=== PATIENT | female | born 1960 | race Caucasian/White ===

== ENCOUNTER → 2016-07-25 | Outpatient (CLI) | payer BC, OTHER ==
[~2016-07-25] VITALS: Ht 165.1 cm; Wt 95.3 kg
[~2016-07-25] MED LIST: ACCUNEB SO1.25 MG/1 INH; ALBUTEROL2.5 MG/0.5 INH; ASPIR 8181 MG PO; BIOTIN10000 MC1 PO; CARVEDILOL6.25 MG PO; FERREX 150 PLU1 EAC1 PO; FONDAPARIN10 MG/0.8 SUBQ; K-DUR 20 MEQ T20 MEQ PO; LASIX 20 MG TAB20 MG PO; LEVOTHYROXIN0.088 MG PO; ONE-A-DAY WOMENS PO; OXYCODONE HCL 55 MG PO; PACERONE 200 M200 M1 PO; PEPCID20 MG PO; VITAMIN B122500 MCG PO; VITAMIN D3400 UNIT PO; VITAMIN E400 UNIT PO
--- NOTE | ~2016-07-25 | EKG ---
[address] [address] ELECTROCARDIOGRAM REPORT Name: HI TAPIA [id number] Admission: 07/25/16 Attend Phys: Floyd Foster MD Discharge: Date of : 56 Report #: [id number] THIS REPORT FOR: //name// [facility] Test Date: 2016-07-25 Test Time: 11:50:35 Pat Name: HI TAPIA Department: Room: Gender: F Tank Bottom Assembler: Liliane SHOOK : 1960 Requested By: Floyd Foster Order Number: [id number] MD: Jairo Murphy Measurements Intervals [place] Rate: 56 P: -26 [place]: 164 QRS: 24 QRSD: 89 T: 53 QT: 470 QTc: 454 Interpretive Statements Sinus rhythm Consider left ventricular hypertrophy No previous ECG available for comparison Electronically Signed On 07-25-2016 15:31:52 FRUIT THINNER by Jairo Murphy [email or web address] <ELECTRONICALLY SIGNED> By: Jairo Murphy MD 07/25/16 1531 1150 1150 MD MARGA Keita
--- NOTE | ~2016-07-25 | H ---
[facility] [place] [address] HISTORY AND PHYSICAL Name: HI TAPIA Room #: REG KAYLA Santillan#: [id number] Admission: 07/25/16 Attend Phys: Floyd Foster MD Discharge: Date of : 56 Report #: [id number] THIS REPORT FOR: //name// CC: Yaneli Foster DATE OF SERVICE: 07/25/2016 INDICATION: Aortic stenosis. HISTORY OF PRESENT ILLNESS: Today, the patient presents for elective cardiac catheterization prior to having aortic valve replacement. The patient has a history of aortic stenosis, cirrhosis, and gastric bypass. Since her gastric bypass in 2012, she has lost over 100 sounds. The patient reports having a history of nonalcoholic cirrhosis. She had an echocardiogram revealing severe aortic stenosis with normal LV systolic function. She has been evaluated by Dr. Stephenson, scheduled to have an aortic valve replacement. Clinically, she offers no complaints of angina. At times, she will feel dyspnea with exertion. There is no history of lightheadedness, PND, or orthopnea. PAST MEDICAL HISTORY: Aortic stenosis, cirrhosis, gastric bypass, severe aortic stenosis, and normal ejection fraction. MEDICATIONS: Levothyroxine, vitamin, and fish oil. ALLERGIES: ASPIRIN. SOCIAL HISTORY: Negative for tobacco use. REVIEW OF SYSTEMS: A full 10-point review of systems performed. Only the pertinent positives and negatives are described in the HPI. PHYSICAL EXAMINATION: VITAL SIGNS: Blood pressure is 140/70, heart rate is 70 beats per minute. GENERAL APPEARANCE: This is a well-developed, well-nourished female, in no acute respiratory distress. HEAD AND EYES: Normocephalic. Sclerae are anicteric. ENT: Oral mucosa moist. NECK: Supple. LUNGS: Clear to auscultation. CARDIAC: Regular rate and rhythm, S1, S2 positive. 2/6 systolic murmur. ABDOMEN: Soft. EXTREMITIES: No major joint deformities. No edema. ASSESSMENT: 1. Severe aortic stenosis, scheduled cardiac catheterization prior to surgery. [facility] [address] [place] [address] HISTORY AND PHYSICAL Name: HI TAPIA Room #: [facility]#: [id number] Admission: 07/25/16 Attend Phys: Floyd Foster MD Discharge: Date of : 56 Report #: [id number] 2. Hypothyroidism. 3. History of gastric bypass. 4. Cryptogenic cirrhosis. <ELECTRONICALLY SIGNED> By: Floyd Foster MD 07/29/16 0819 1522 1540 Floyd Foster MD /nt
--- NOTE | ~2016-07-25 | CATHLAB ---
[facility] [place] [address] INVASIVE PROCEDURE REPORT Name: HI TAPIA Room #: REG [facility]#: [id number] Admission: 07/25/16 Attend Phys: Floyd Foster MD Discharge: Date of : 56 Date of Service: 07/25/16 1644 Report #: [id number] THIS REPORT FOR: //name// CC: Yaneli Foster DATE OF SERVICE: 07/25/2016 CARDIAC CATHETERIZATION REPORT INDICATION: /evaluation for Valvular heart surgery. Full risks, benefits and alternatives of cardiac catheterization were explained to the patient. All questions were answered. Informed consent was obtained. A Barbeau test was performed on the right radial artery. The right wrist area was prepped and draped in a sterile manner. Lidocaine was given subcutaneously. A 5-Italian sheath was inserted into the right radial artery via modified Seldinger technique. Nitroglycerin and verapamil was injected through the sheath. A units of heparin was given through peripheral IV. CORONARY ANATOMY: The left main artery is a large caliber vessel, with no flow-limiting lesions. The LAD is a moderate sized caliber vessel, travelling down the anterior wall and wrapping around the apex. There were no flow-limiting lesions in the LAD. In the mid segment, there is some mild diffuse disease, less than 20%. The first diagonal artery is a moderate size caliber vessel, with no flow-limiting lesions. The left circumflex artery is a moderate to large size caliber vessel, codominant. There are multiple obtuse marginal arteries. There were no flow-limiting lesions in the left circumflex artery. The RCA is a moderate size caliber vessel, supplying a PDA. There were no flow-limiting lesions in the RCA. A left ventriculogram was performed revealing normal LV systolic function, ejection fraction of 65%. The LVEDP is approximately 20 mmHg. The aortic valve leaflets are heavily calcified. The peak gradient is approximately 70 mmHg across the valve. IMPRESSION: 1. Mild disease in the mid LAD. 2. Normal LV systolic function. [facility] [address] [place] [address] INVASIVE PROCEDURE REPORT Name: HI TAPIA Room #: REG [facility]#: [id number] Admission: 07/25/16 Attend Phys: Floyd Foster MD Discharge: Date of : 56 Date of Service: 07/25/16 1644 Report #: [id number] 3. Severe aortic stenosis. 4. Recommend surgical evaluation. <ELECTRONICALLY SIGNED> By: Floyd Foster MD 07/26/16 0825 1644 220 Floyd Foster MD /nt
[2016-07-25 12:05] VITALS: BP 158/76
[2016-07-25 12:07] LABS: HEMOGLOBIN 12.2 gm/dL (12.0-15.0); MCH 30.9 pg (26.0-34.0); MCHC 33.8 % (28.0-37.0); MCV 91.5 fL (80.0-100.0); RBC 3.93 mil/uL (4.20-5.00); RDW 15.2 % (10.5-14.5); WBC 4.4 thou/uL (4.0-11.0)
[2016-07-25 12:19] LABS: CALCIUM 8.8 mg/dL (8.5-10.1); CREATININE 0.7 mg/dL (0.6-1.3); POTASSIUM 3.9 mmol/L (3.5-5.1)
== END | disposition home or self-care (01) ==
LOC: CATH 09:38
PROVIDERS: Internal Medicine Cardiovascular Disease
DX: I25.10 Atherosclerotic heart disease of native coronary artery without angina pectoris (principal); I35.0 Nonrheumatic aortic (valve) stenosis

== ENCOUNTER 2016-08-25 08:39 | Inpatient (IN) | payer BC, OTHER ==
[2016-08-19 09:54] LABS: HEMATOCRIT 35.5 % (37.0-47.0); HEMOGLOBIN 12.2 gm/dL (12.0-15.0); MCH 31.4 pg (26.0-34.0); MCHC 34.3 g/dL (28.0-37.0); MCV 91.4 fL (80.0-100.0); RBC 3.89 mil/uL (4.20-5.00); RDW 15.3 % (10.5-14.5); URINE BILIRUBIN NEGATIVE (Negative); URINE BLOOD NEGATIVE (Negative); URINE COLOR YELLOW; URINE GLUCOSE-RANDOM* NEGATIVE (Negative); URINE KETONES NEGATIVE (Negative); URINE LEUKOCYTES-REFLEX TRACE (Negative); URINE PROTEIN (DIPSTICK) NEGATIVE (Negative); WBC 3.9 thou/uL (4.0-11.0)
[2016-08-19 10:03] LABS: CALCIUM 9.1 mg/dL (8.5-10.1); CREATININE 0.7 mg/dL (0.6-1.3); POTASSIUM 3.9 mmol/L (3.5-5.1)
[2016-08-19 10:05] LABS: APTT 29.6 Seconds (24.5-32.8); INR 1.2; PROTIME 12.4 Seconds (9.3-11.4)
[2016-08-19 11:16] LABS: ALBUMIN 3.6 g/dL (3.4-5.0); DIRECT BILIRUBIN 0.3 mg/dL (<0.1-0.3); TOTAL BILIRUBIN 1.2 mg/dL (<0.1-1.0); TOTAL PROTEIN 6.6 g/dL (6.4-8.2)
[~2016-08-25] VITALS: Ht 165.1 cm; Wt 101.2 kg
--- NOTE | ~2016-08-25 | EKG ---
[address] [place] [address] ELECTROCARDIOGRAM REPORT Name: HI TAPIA Room #: 237- ADM IN M.R.#: [id number] Admission: 08/30/16 Attend Phys: Amos Stephenson MD Discharge: Date of : 56 Report #: [id number] THIS REPORT FOR: //name// [facility] Test Date: 2016-08-31 Test Time: 06:21:43 Pat Name: HI TAPIA Department: Room: 237 Gender: F Ointment Mill Tender: michelle : 1960 Requested By: Blair Lucas Order Number: [id number] MD: Godwin Pires Measurements Intervals [place] Rate: 79 P: 74 [place]: 161 QRS: 9 QRSD: 92 T: 45 QT: 490 QTc: 562 Interpretive Statements Sinus rhythm LVH with secondary repolarization abnormality Prolonged QT interval Compared to ECG 08/19/2016 09:26:05 no significant change was found Electronically Signed On 08-31-2016 8:30:46 MANAGEMENT MANAGER by Godwin Pires [email or web address] <ELECTRONICALLY SIGNED> By: Godwin Pires MD, [facility] 03/02/09 830 0 0 Godwin Pires MD, [facility] /EPI
--- NOTE | ~2016-08-25 | EKG ---
[place] [address] [facility] [employer] [place] [place] [address] ELECTROCARDIOGRAM REPORT Name: HI TAPIA Room #: 237-P ADM IN M.R.#: [id number] Admission: 08/30/16 Attend Phys: Amos Stephenson MD Discharge: Date of : 56 Report #: [id number] THIS REPORT FOR: //name// [facility] Test Date: 2016-08-30 Test Time: 13:50:10 Pat Name: HI TAPIA Department: Room: [facility] Gender: F Knife Edger: michelle : 1960 Requested By: Blair Lucas Order Number: [id number] MD: Godwin Pires Measurements Intervals [place] Rate: 76 P: 47 [place]: 187 QRS: 31 QRSD: 111 T: 30 QT: 418 QTc: 471 Interpretive Statements Sinus rhythm RSR' in V1 or V2, right VCD or RVH Nonspecific ST and T wave abnormality Compared to ECG 08/19/2016 09:26:05 No significant change was found Electronically Signed On 08-31-2016 8:15:18 AUTOMOTIVE LUBE TECHNICIAN by Godwin Pires [email or web address] <ELECTRONICALLY SIGNED> By: Godwin Pires MD, FACC 08/31/16 0815 1350 1350 Godwin Pires MD, [facility] /EPI
--- NOTE | ~2016-08-25 | O ---
[facility] [place] [address] OPERATIVE REPORT Name: HI TAPIA Room #: 210-P [facility] IN M.R.#: [id number] Admission: 08/30/16 Attend Phys: Amos Stephenson MD Discharge: 09/07/16 Date of : 56 Report #: [id number] THIS REPORT FOR: //name// CC: Yaneli Stephenson DATE OF SERVICE: 08/30/2016 PREOPERATIVE DIAGNOSIS: Aortic valve stenosis. POSTOPERATIVE DIAGNOSIS: Aortic valve stenosis. OPERATION: Aortic valve replacement with 21 mm tissue device. SURGEON: Amos Stephenson M.D. SUBMARINE DIVER: Lance. ANESTHESIA: General. INDICATIONS: The patient is a 55-year-old with aortic valve stenosis. The patient presents with progressive fatigue and shortness of breath. Cardiac catheterization by Dr. Foster showed no important coronary artery disease. FINDINGS AND TECHNIQUE: After general anesthesia was established, exposure was obtained through median sternotomy. Pericardial well was made. Cannulation sutures were placed. Heparin was given. Aorta was cannulated. Right atrium was cannulated. Cardioplegia needle was positioned in the aortic root. Retrograde cardioplegic catheter was placed in the coronary sinus. Cardiopulmonary bypass was established. The aorta was cross clamped. Antegrade and then retrograde cardioplegia were given. Ice was poured in the pericardial well. The heart was stopped. During electromechanical arrest, the aortic valve was replaced. An aortotomy was made approximately 15 mm above the right coronary ostium. Cardioplegia was given every 15 minutes through the retrograde root and with selective catheter in the right coronary ostium. The valve cusps were excised. The cavity of the ventricle was irrigated to remove any loose debris. 2-0 Ethibond sutures were placed sequentially through the nightmute annulus and then through the device, 21 mm selected for the patient and prosthesis matching, although prosthesis lowered into place and sutures were secured with a Cor-Knot device. The valve seemed to seat nicely. The aortotomy was closed with Carrel technique. Warm cardioplegia was given followed by warm continuous blood to the coronary [facility] [address] [place] [address] OPERATIVE REPORT Name: REGINAHI Room #: 210-P [facility] IN M.R.#: [id number] Admission: 08/30/16 Attend Phys: Amos Stephenson MD Discharge: 09/07/16 Date of : 56 Report #: [id number] sinus. The crossclamp was removed. De-airing maneuvers were performed. The aortotomy was inspected and found to be secured. As the patient warmed, nice cardiac activity resumed, chest tubes and pacing wires were placed. When the patient was warmed, she was weaned from cardiopulmonary bypass. Venous cannula was removed. Protamine was given. The aortic cannula was removed. Transesophageal echo showed that the aortic valve was performing nicely, this was also useful for our de-airing maneuvers. When hemostasis was satisfactory, chest was closed in the usual fashion. The patient was taken to the recovery area in good condition having tolerated the procedure well. <ELECTRONICALLY SIGNED> By: Amos Stephenson MD 09/07/162009 1731 1808 Amos Stepehnson MD /nt
--- NOTE | ~2016-08-25 | H ---
[facility] [address] [place] [address] HISTORY AND PHYSICAL Name: HI TAPIA Room #: 210-P [facility] IN M.R.#: [id number] Admission: 08/30/16 Attend Phys: Amos Stephenson MD Discharge: 09/07/16 Date of : 56 Report #: [id number] THIS REPORT FOR: //name// For History and Physical, please see office documentation/handwritten note in the patient's medical record. <ELECTRONICALLY SIGNED> By: Amos Stephenson MD 09/07/162009 1246 Amos Stephenson MD /
--- NOTE | ~2016-08-25 | EKG ---
[address] [employer] [place] [address] ELECTROCARDIOGRAM REPORT Name: HI TAPIA Room #: PRE IN [facility]#: [id number] Admission: Attend Phys: Amos Stephenson MD Discharge: Date of : 56 Report #: [id number] THIS REPORT FOR: //name// [facility] Test Date: 2016-08-19 Test Time: 09:26:05 Pat Name: HI TAPIA Department: Room: Gender: F Associate Chief Nurse: NANETTE VARGAS : 1960 Requested By: Amos Stephenson Order Number: [id number] MD: Jairo Murphy Measurements Intervals [place] Rate: 56 P: 71 [place]: 127 QRS: 79 QRSD: 90 T: -41 QT: 451 QTc: 436 Interpretive Statements Sinus rhythm Consider left ventricular hypertrophy Nonspecific T abnormalities, inferior leads Compared to ECG 07/25/2016 11:50:35 T-wave abnormality now present Electronically Signed On 08-19-2016 13:08:10 BURIAL VAULT MAKER by Jairo Murphy [email or web address] <ELECTRONICALLY SIGNED> By: Jairo Murphy MD 08/19/16 1308 5 5 Jairo Murphy MD /LAURA
--- NOTE | ~2016-08-25 | EKG ---
[address] [address] ELECTROCARDIOGRAM REPORT Name: HI TAPIA Room #: 210- ADM IN M.R.#: [id number] Admission: 08/30/16 Attend Phys: Amos Stephenson MD Discharge: Date of : 56 Report #: [id number] THIS REPORT FOR: //name// [facility] Test Date: 2016-09-03 Test Time: 08:08:20 Pat Name: HI TAPIA Department: Room: 210 P Gender: F Human Resource Internship: SILVIA : 1960 Requested By: Amos Stephenson Order Number: [id number] MD: Godwin Pires Measurements Intervals [place] Rate: 59 P: 40 CT: 167 QRS: 25 QRSD: 97 T: 35 QT: 576 QTc: 571 Interpretive Statements Sinus rhythm Prolonged QT interval Compared to ECG 08/31/2016 06:21:43 No significant change was found Electronically Signed On 09-03-2016 12:04:26 OPERATOR/ASSISTANT FOREMAN by Godwin Pires [email or web address] <ELECTRONICALLY SIGNED> By: Godwin Pires MD, [facility] 09/03/16 1204 7 7 Godwin Pires MD, [facility] /EPI
--- NOTE | ~2016-08-25 | S ---
[facility] [place] [address] SURGICAL PATH RPT PROCEDURE Name: HI FERRER Room #: 237-P ADM IN M.R.#: [id number] Admission: 08/30/16 Date of : 56 Discharge: Report #: [id number] Path Case #: [id number] PATHOLOGY REPORT COLLECTION DATE: 08/30/2016 RECEIVED DATE: 08/30/2016 SUBMITTING PHYS: Dr. Amos Stephenson OTHER PHYS: Dr. Yaneli Carpio SPECIMEN(S) RECEIVED: A.Aortic valve * * * * * * * * * * * * FINAL DIAGNOSIS: "Aortic valve", valve replacement: - Heart valve with calcific atherosclerosis. (CLW:abril; d/t: 08/31/2016) PATHOLOGIST: Gracie Bowen M.D. REPORT ELECTRONICALLY SIGNED BY: Gracie Bowen M.D. DATE/TIME: 08/31/2016 21:26 * * * * * * * * * * * * GROSS PATHOLOGY: The specimen is received in formalin, labeled "Hi Ferrer and aortic valve." Received are 3 white-menendez, blood-tinged, and rubbery soft tissue measuring 5.8 x 1.4 x 0.5 cm in aggregate. The soft tissue displays focal areas of calcifications ranging from 0.5-1.7 cm in greatest dimension. Raschel Knitting Machine Operator sections are submitted in cassette A1, following decalcification. (TTL; 08/30/2016) CLINICAL HISTORY: Aortic stenosis INITIAL CPT CODE(S): 40508, 35292 Professional services performed by [facility] at [facility] [address] [place] [address] Technical services performed by [facility] at [address] [place] [address]. [facility] [address] [place] [address] SURGICAL PATH RPT PROCEDURE Name: HI FERRER Room #: 237-P ADM IN M.R.#: [id number] Admission: 08/30/16 Date of : 56 Discharge: Report #: [id number] Path Case #: [id number] [facility] [address] [place] [address] PHONE: [phone] DIRECTOR: Moreno Chandler M.D. * * * END OF REPORT * * *
--- NOTE | ~2016-08-25 | HC ---
[facility] [place] [address] CONSULTATION Name: HI TAPIA Room #: 210-P ADM IN M.R.#: [id number] Admission: 08/30/16 Attend Phys: Amos Stephenson MD Discharge: Date of : 56 Report #: [id number] THIS REPORT FOR: //name// CC: Yaneli Stephenson MD REASON FOR CONSULTATION: Possible heparin-induced thrombocytopenia. HISTORY OF PRESENT ILLNESS: The patient is a 55-year-old female who has a history of nonalcoholic steatohepatitis and cirrhosis, who has no prior kowledge of low platelets. One of the other care givers thinks they had seen records suggesting that her platelets have been in the 80,000 range for the last 6 or 9 months. Previous to this, she was in [place] and we do not have those records available to us. When the patient was admitted to the hospital on August 30, it was 66,000. On August 19, they were 83,000. On July 25, they were 80,000. The patient received her first dose of heparin on September 22 and then again on August 30 at about 06:30. So, the platelet count on August 30, the first would have been after the heparin. The patient also notes that she received transfusions of platelets on August 30, one unit. The platelet count on the was 118,000; the next day, 54,000; on the , they were 51,000; on the , 54,000; on the , 54,000 and today, 63,000. The patient has not had any clinical sign of clots. The patient has no prior acknowledge of low platelets before this hospitalization, though I told her it would not be unusual if her platelets were in the 80,000 to 90,000 range with a history of cryptogenic cirrhosis, for her doctors would have expected that and might not have made any unusual comments. I described the patient that she had a heparin-induced platelet antibody by the optical density test that was measured and this came back elevated in the 0.922 range, which is indeterminant. During the same time, her chemistries have had a BUN of 8, creatinine of 0.8. AST on August 19 was 40, total bilirubin 1.2, alkaline phosphatase 110 and albumin 3.6. INR baseline was about 1.8; it is currently 1.3. APTT had been 29.1, fibrinogen had been 183.2. White count 4.6. Hemoglobin on admission was 8.8, transfused up to 11; it is currently 9.8. No clinical sign of bleeding. MCV has been 93. Differential of the white count has been mostly normal, without any acute forms. TSH normal range. U/A without any significant red cells. PAST MEDICAL HISTORY: Past history is notable for the aortic stenosis, for which she had the elective aortic valve replacement with a, I believe, bioprosthetic valve. She also has a history of the nonalcoholic steatohepatitis with cirrhosis, she thinks in about 2010 and gastric bypass in 2011. She said it was not a sleeve. They did somewhat of a bypass for the small intestine. She also had reported normal ejection fraction, has hypothyroidism and had diabetes prior to the weight loss. Note that before the bypass, she weighed 340 [facility] [address] [place] [address] CONSULTATION Name: HI TAPIA Room #: 210-P [facility] [place]#: [id number] Admission: 08/30/16 Attend Phys: Amos Stephenson MD Discharge: Date of : 56 Report #: [id number] and recently, weighs more like 210 pounds. ALLERGIES: Supposedly is towards ASPIRIN, but someone said she is on it. MEDICATIONS: Before this admission, she was on levothyroxine, vitamins and fish oil. Current medications include the potassium chloride 20 mEq has daily, furosemide 40 mg daily, fondaparinux 10 mg daily subq, oxycodone 2.5 mg q.6h. p.r.n., aspirin 81 mg daily, docusate 100 mg daily, iron polysaccharide 150 mg daily, levothyroxine 88 mcg daily, famotidine 20 mg daily, neomycin and bacitracin topically daily, carvedilol 6.125 b.i.d., MiraLax 17 grams daily and fentanyl IV p.r.n. 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 Nonsmoker. FAMILY HISTORY: Father had some type of heart issues. She has a son who had a blood clot at age 22, but he also weighed over 500 pounds. She has 3 brothers and one sister. No one has any blood issues in those family members. PHYSICAL EXAMINATION: VITAL SIGNS: Height is 5 feet 5, which is 165 cm. Weight is around 223 pounds, which is 101.32 kilograms. Blood pressure 118/65, pulse 93, temperature afebrile at 98.3 and respirations 16. MOOD: The patient is alert and pleasant, though somewhat tired. NEUROLOGIC: Her face is symmetric. She is moving all extremities. She is speaking well and speech pattern is normal. HEENT: Oropharynx clear, without injection. LUNGS: Clear, symmetric unlabored respiratory excursion. HEART: Regular rate. LYMPHATICS: No enlarged lymph nodes in the supraclavicular, cervical or axillary region. CHEST: Status post surgery. ABDOMEN: Obese. No masses. EXTREMITIES: Without clubbing or cyanosis. RADIOLOGIC DATA: Radiologic studies this admit include mostly plain films with postoperative changes noted in the mediastinum and vascular sheath had been removed and vascular congestion and pulmonary edema had improved. DISCUSSION: I discussed with the patient that she may have heparin-induced thrombocytopenia, though we are waiting for the serum serotonin release assay to help determine whether she truly has this or not. We would call this indeterminant at this point. On the other hand, I would continue with the Arixtra as a prophylaxis, as a risk for clots is fairly high in this situation, perhaps 20% or 30%. If the functional test comes back positive, the patient should probably have 2-3 months of anticoagulation with Arixtra trans unbridged to Coumadin with a target INR of 2-3. Hopefully we can prevent a clot. If she [facility] [address] [place] [address] CONSULTATION Name: HI TAPIA Room #: 210-P ADM IN .R.#: [id number] Admission: 08/30/16 Attend Phys: Amos Stephenson MD Discharge: Date of : 56 Report #: [id number] did have a clot, then that would be very dangerous and she would need 3-6 months of anticoagulation. ASSESSMENT AND PLAN: 1. Slightly low platelets, but baseline was low to begin with, now with a positive optical density heparin antibody at 0.9, which puts her at intermediate risk for truly having heparin-induced thrombocytopenia. We all would agree with continuing Arixtra 10 mg subq daily along with Coumadin, target INR 2-3 if you wish. We would like to see platelets improved to her normal range, which for this patient is 80,000. Then we could continue with Coumadin alone and wait for the functional test to come back. If the functional test comes back negative, we could then most likely stop the Arixtra and Coumadin, if it has only been given for potential HIT. If they wish to have anticoagulation for other indications, then that would be a different decision point. 2. Thrombocytopenia, most likely chronic in nature, related to the patient's history of nonalcoholic steatohepatitis and cirrhosis. 3. Aortic valve replacement. The patient appears to be recovering well from this and this is a 21 mm tissue device. 4. Hypothyroidism. Continue thyroid replacement. 5. History of obesity, status post bypass many years ago. Continues alimentation. 6. Cardiac issues. Continues furosemide, aspirin and carvedilol. Note that amiodarone has been held. 7. Anemia. Note that the patient was anemic on admit, unclear etiology. May need to be worked up as an outpatient, though her hemoglobin was 12 in July. Also back up on the area of nonalcoholic steatohepatitis. Note, the patient states that she still needs to make contact with a brush trimming machine setter in the [facility] for followup. We will follow with you. <ELECTRONICALLY SIGNED> By: Shade Hughes MD 09/07/16 0824 04 1035 Shade Hughes MD /nt
[~2016-08-25 08:39] MED LIST changes: -ASPIR 8181 MG PO; -CARVEDILOL6.25 MG PO; -FERREX 150 PLU1 EAC1 PO; -FONDAPARIN10 MG/0.8 SUBQ; -K-DUR 20 MEQ T20 MEQ PO; -LASIX 20 MG TAB20 MG PO; -OXYCODONE HCL 55 MG PO; -PACERONE 200 M200 M1 PO
[2016-08-30 07:30] VITALS: BP 128/80
[2016-08-30 12:17] LABS: HEMATOCRIT 26.3 % (37.0-47.0); HEMOGLOBIN 8.8 gm/dL (12.0-15.0); MCH 31.3 pg (26.0-34.0); MCHC 33.6 g/dL (28.0-37.0); MCV 93.1 fL (80.0-100.0); RBC 2.83 mil/uL (4.20-5.00); WBC 17.8 thou/uL (4.0-11.0)
[2016-08-30 12:36] LABS: APTT 32.9 Seconds (24.5-32.8); FIBRINOGEN 110.7 mg/dL (210-360); INR 1.8; PROTIME 18.3 Seconds (9.3-11.4)
[2016-08-30 12:41] LABS: POC BE 4 mmol/L (-2.0 to +3.0); POC CA IONIZED 4.3 mg/dL (4.5-5.3); POC FiO2 100 %; POC GLUCOSE 187 mg/dL (70-99); POC HCO3 28.2 mmol/L (22.0-26.0); POC HEMOGLOBIN 7.8 gm/dL (12.0-15.0); POC POTASSIUM 4.5 mmol/L (3.5-5.1); POC SODIUM 142 mmol/L (136-145); POC pH 7.415 (7.360-7.450)
[2016-08-30 12:41] LABS: POC BE -3 mmol/L (-2.0 to +3.0); POC CA IONIZED 4.5 mg/dL (4.5-5.3); POC FiO2 80 %; POC GLUCOSE 177 mg/dL (70-99); POC HEMOGLOBIN 8.5 gm/dL (12.0-15.0); POC POTASSIUM 4.4 mmol/L (3.5-5.1); POC SODIUM 141 mmol/L (136-145); POC pCO2 41.3 mmHg (35.0-45.0); POC pH 7.354 (7.360-7.450)
[2016-08-30 12:41] LABS: POC BE -3 mmol/L (-2.0 to +3.0); POC CA IONIZED 4.6 mg/dL (4.5-5.3); POC FiO2 100 %; POC GLUCOSE 149 mg/dL (70-99); POC HEMOGLOBIN 10.9 gm/dL (12.0-15.0); POC POTASSIUM 3.8 mmol/L (3.5-5.1); POC SODIUM 140 mmol/L (136-145); POC pCO2 37.7 mmHg (35.0-45.0); POC pH 7.373 (7.360-7.450)
[2016-08-30 12:41] LABS: POC BE -2 mmol/L (-2.0 to +3.0); POC CA IONIZED 4.8 mg/dL (4.5-5.3); POC FiO2 10 %; POC GLUCOSE 138 mg/dL (70-99); POC HCO3 22.5 mmol/L (22.0-26.0); POC HEMOGLOBIN 10.5 gm/dL (12.0-15.0); POC POTASSIUM 3.8 mmol/L (3.5-5.1); POC SODIUM 141 mmol/L (136-145); POC pCO2 37.2 mmHg (35.0-45.0)
[2016-08-30 12:41] LABS: POC BE -2 mmol/L (-2.0 to +3.0); POC CA IONIZED 4.4 mg/dL (4.5-5.3); POC FiO2 100 %; POC GLUCOSE 150 mg/dL (70-99); POC HCO3 24.3 mmol/L (22.0-26.0); POC HEMOGLOBIN 8.8 gm/dL (12.0-15.0); POC POTASSIUM 3.9 mmol/L (3.5-5.1); POC SODIUM 139 mmol/L (136-145); POC pCO2 47.3 mmHg (35.0-45.0); POC pH 7.318 (7.360-7.450)
[2016-08-30 12:46] LABS: POC BE -2 mmol/L (-2.0 to +3.0); POC CA IONIZED 4.7 mg/dL (4.5-5.3); POC FiO2 100 %; POC GLUCOSE 174 mg/dL (70-99); POC HCO3 23.9 mmol/L (22.0-26.0); POC HEMOGLOBIN 10.5 gm/dL (12.0-15.0); POC POTASSIUM 3.9 mmol/L (3.5-5.1); POC SODIUM 143 mmol/L (136-145); POC pCO2 44.4 mmHg (35.0-45.0); POC pH 7.338 (7.360-7.450)
[2016-08-30 12:46] LABS: POC BE -5 mmol/L (-2.0 to +3.0); POC CA IONIZED 4.4 mg/dL (4.5-5.3); POC FiO2 100 %; POC GLUCOSE 146 mg/dL (70-99); POC HCO3 21.5 mmol/L (22.0-26.0); POC HEMOGLOBIN 8.8 gm/dL (12.0-15.0); POC POTASSIUM 4.1 mmol/L (3.5-5.1); POC SODIUM 139 mmol/L (136-145); POC pCO2 42.9 mmHg (35.0-45.0); POC pH 7.307 (7.360-7.450)
[2016-08-30 12:46] LABS: POC BE -3 mmol/L (-2.0 to +3.0); POC CA IONIZED 4.6 mg/dL (4.5-5.3); POC FiO2 80 %; POC GLUCOSE 167 mg/dL (70-99); POC HCO3 23.6 mmol/L (22.0-26.0); POC HEMOGLOBIN 8.5 gm/dL (12.0-15.0); POC POTASSIUM 4.4 mmol/L (3.5-5.1); POC SODIUM 139 mmol/L (136-145); POC pCO2 49.1 mmHg (35.0-45.0)
[2016-08-30 12:46] LABS: POC BE -3 mmol/L (-2.0 to +3.0); POC CA IONIZED 5.2 mg/dL (4.5-5.3); POC FiO2 100 %; POC GLUCOSE 182 mg/dL (70-99); POC HCO3 22.8 mmol/L (22.0-26.0); POC HEMOGLOBIN 8.8 gm/dL (12.0-15.0); POC SODIUM 141 mmol/L (136-145); POC pCO2 40.7 mmHg (35.0-45.0); POC pH 7.357 (7.360-7.450)
[2016-08-30 13:07] VITALS: BP 110/48; BP 120/56
[2016-08-30 13:30] LABS: ABG SAMPLE TYPE ARTERIAL; BE(vivo) -4.2 mmol/L (-2 to +3); HCO3 22.2 mmol/L (22.0-26.0); LACTATE 1.98 mmol/L (0.5-2.0); O2(CT) 16.3 mL/dL (15.0-23.0); O2Hb 95.7 % (92.0-98.0); PCO2 46.1 mmHg (35.0-45.0); sO2 96.9 % (92.0-98.0); tCO2 23.6 mmol/L (24.0-30.0)
[2016-08-30 13:31] LABS: STICK SITE LINE; pH 7.301 (7.360-7.450)
[2016-08-30 13:34] LABS: ABG SAMPLE TYPE VENOUS; BE(vivo) -3.9 mmol/L (-2 to +3); HCO3 23.6 mmol/L (22.0-26.0); LACTATE 1.93 mmol/L (0.5-2.0); O2(CT) 12.3 mL/dL (15.0-23.0); PCO2 VENOUS 54.5 mmHg (41.0-51.0); PO2 VENOUS 46.6 mmHg (35.0-45.0); TIDAL VOLUME 600 ml; sO2 VENOUS 75.3 % (65.0-85.0); tCO2 25.3 mmol/L (24.0-30.0)
[2016-08-30 13:36] LABS: STICK SITE LINE
[2016-08-30 13:39] LABS: HEMATOCRIT 31.8 % (37.0-47.0); MCH 31.9 pg (26.0-34.0); MCHC 34.5 g/dL (28.0-37.0); MCV 92.4 fL (80.0-100.0); RBC 3.44 mil/uL (4.20-5.00); RDW 15.2 % (10.5-14.5); WBC 18.1 thou/uL (4.0-11.0)
[2016-08-30 13:46] LABS: CALCIUM 8.7 mg/dL (8.5-10.1); CREATININE 0.8 mg/dL (0.6-1.3)
[2016-08-30 16:21] LABS: ABG COMMENT CPAP; ABG SAMPLE TYPE ARTERIAL; BE(vivo) -3.2 mmol/L (-2 to +3); HCO3 22.5 mmol/L (22.0-26.0); LACTATE 1.67 mmol/L (0.5-2.0); O2(CT) 15.8 mL/dL (15.0-23.0); O2Hb 97.1 % (92.0-98.0); PCO2 42.8 mmHg (35.0-45.0); PO2 131.9 mmHg (80.0-100.0); Pressure Support 8 cm H20; STICK SITE LINE; pH 7.338 (7.360-7.450); sO2 98.5 % (92.0-98.0); tCO2 23.8 mmol/L (24.0-30.0)
[2016-08-30 17:24] LABS: ABG SAMPLE TYPE ARTERIAL; BE(vivo) -4.5 mmol/L (-2 to +3); Face Shield 60 %; HCO3 21.1 mmol/L (22.0-26.0); LACTATE 1.46 mmol/L (0.5-2.0); O2Hb 97.2 % (92.0-98.0); PCO2 40.9 mmHg (35.0-45.0); PO2 154.1 mmHg (80.0-100.0); STICK SITE LINE; sO2 98.9 % (92.0-98.0); tCO2 22.3 mmol/L (24.0-30.0)
[2016-08-30 18:24] LABS: HEMATOCRIT 32.7 % (37.0-47.0); HEMOGLOBIN 11.1 gm/dL (12.0-15.0); MCH 31.6 pg (26.0-34.0); MCHC 34.1 g/dL (28.0-37.0); MCV 92.9 fL (80.0-100.0); RBC 3.52 mil/uL (4.20-5.00); RDW 15.1 % (10.5-14.5); WBC 15.5 thou/uL (4.0-11.0)
[2016-08-30 18:31] LABS: CALCIUM 8.8 mg/dL (8.5-10.1); CREATININE 0.7 mg/dL (0.6-1.3); POTASSIUM 4.1 mmol/L (3.5-5.1)
[2016-08-30 22:47] LABS: APTT 29.1 Seconds (24.5-32.8); FIBRINOGEN 183.2 mg/dL (210-360); INR 1.2; PROTIME 12.7 Seconds (9.3-11.4)
[2016-08-31 04:09] LABS: HEMATOCRIT 33.9 % (37.0-47.0); HEMOGLOBIN 11.3 gm/dL (12.0-15.0); MCH 31.1 pg (26.0-34.0); MCHC 33.2 g/dL (28.0-37.0); MCV 93.7 fL (80.0-100.0); RBC 3.62 mil/uL (4.20-5.00); RDW 15.4 % (10.5-14.5); WBC 18.4 thou/uL (4.0-11.0)
[2016-08-31 04:14] LABS: CALCIUM 8.7 mg/dL (8.5-10.1); CREATININE 1.1 mg/dL (0.6-1.3); POTASSIUM 3.7 mmol/L (3.5-5.1)
[2016-09-01] VITALS (11 sets, daily range): BP systolic 108–143; BP diastolic 53–78
[2016-09-01 00:07] LABS: GLYCOHEMOGLOBIN (HGB A1C) 5.3 % (4.8-5.6)
[2016-09-01 05:55] LABS: MCH 31.4 pg (26.0-34.0); MCHC 33.4 g/dL (28.0-37.0); MCV 94.1 fL (80.0-100.0); RBC 3.19 mil/uL (4.20-5.00); RDW 15.7 % (10.5-14.5); WBC 14.1 thou/uL (4.0-11.0)
[2016-09-01 06:13] LABS: CALCIUM 8.7 mg/dL (8.5-10.1); CREATININE 0.8 mg/dL (0.6-1.3); POTASSIUM 4.7 mmol/L (3.5-5.1)
[2016-09-01 08:44] LABS: INR 1.3; PROTIME 12.8 Seconds (9.3-11.4)
[2016-09-02 02:49] VITALS: BP 154/78
[2016-09-02 07:45] VITALS: BP 126/72
[2016-09-02 11:00] VITALS: BP 120/63
[2016-09-02 16:22] LABS: HEMATOCRIT 28.6 % (37.0-47.0); HEMOGLOBIN 9.9 gm/dL (12.0-15.0); MCH 32.4 pg (26.0-34.0); MCHC 34.6 g/dL (28.0-37.0); MCV 93.5 fL (80.0-100.0); RBC 3.06 mil/uL (4.20-5.00); RDW 15.2 % (10.5-14.5); WBC 7.5 thou/uL (4.0-11.0)
[2016-09-02 16:30] VITALS: BP 118/69
[2016-09-02 19:47] VITALS: BP 122/64
[2016-09-03 03:21] LABS: HEMATOCRIT 28.1 % (37.0-47.0); HEMOGLOBIN 9.4 gm/dL (12.0-15.0); MCH 31.5 pg (26.0-34.0); MCHC 33.5 g/dL (28.0-37.0); RBC 2.99 mil/uL (4.20-5.00); RDW 15.2 % (10.5-14.5); WBC 7.1 thou/uL (4.0-11.0)
[2016-09-03 03:34] LABS: CALCIUM 8.5 mg/dL (8.5-10.1); CREATININE 0.7 mg/dL (0.6-1.3); POTASSIUM 3.9 mmol/L (3.5-5.1)
[2016-09-03 04:34] VITALS: BP 125/71
[2016-09-03 07:05] VITALS: BP 129/69
[2016-09-03 11:10] VITALS: BP 124/59
[2016-09-03 16:40] VITALS: BP 142/77
[2016-09-03 19:42] VITALS: BP 109/68
[2016-09-04 03:33] LABS: HEMATOCRIT 27.8 % (37.0-47.0); HEMOGLOBIN 9.5 gm/dL (12.0-15.0); MCHC 34.3 g/dL (28.0-37.0); MCV 93.5 fL (80.0-100.0); PLATELET COUNT 54 thou/uL (150-400); RBC 2.97 mil/uL (4.20-5.00); RDW 15.2 % (10.5-14.5); WBC 4.8 thou/uL (4.0-11.0)
[2016-09-04 03:38] VITALS: BP 121/63
[2016-09-04 03:39] LABS: MANUAL DIFF YES
[2016-09-04 03:46] LABS: CALCIUM 8.5 mg/dL (8.5-10.1); CREATININE 0.6 mg/dL (0.6-1.3); POTASSIUM 3.4 mmol/L (3.5-5.1)
[2016-09-04 04:24] LABS: LARGE PLATELETS OCCASIONAL; TOTAL CELL COUNT 100
[2016-09-04 04:25] LABS: PLATELET ESTIMATE DECREASED
[2016-09-04 09:00] VITALS: BP 125/65
[2016-09-04 13:00] VITALS: BP 119/64
[2016-09-04 17:00] VITALS: BP 112/67
[2016-09-04 20:16] VITALS: BP 134/70
[2016-09-05 04:35] VITALS: BP 120/54
[2016-09-05 07:59] VITALS: BP 123/65
[2016-09-05] MEDS ORDERED: FERREX 150 PLU1 EAC1 PO (08:38)
[2016-09-05] MEDS ORDERED: CARVEDILOL6.25 MG PO (08:38)
[2016-09-05] MEDS ORDERED: PACERONE 200 M200 M1 PO (08:39)
[2016-09-05] MEDS ORDERED: ASPIR 8181 MG PO (08:39)
[2016-09-05] MEDS ORDERED: LASIX 20 MG TAB20 MG PO (09:03)
[2016-09-05] MEDS ORDERED: K-DUR 20 MEQ T20 MEQ PO (09:03)
[2016-09-05 09:31] LABS: HEMATOCRIT 28.1 % (37.0-47.0); HEMOGLOBIN 9.8 gm/dL (12.0-15.0); MCH 32.6 pg (26.0-34.0); MCHC 34.9 g/dL (28.0-37.0); MCV 93.4 fL (80.0-100.0); RBC 3.01 mil/uL (4.20-5.00); RDW 15.1 % (10.5-14.5); WBC 4.6 thou/uL (4.0-11.0)
[2016-09-05 09:40] LABS: CALCIUM 8.7 mg/dL (8.5-10.1); CREATININE 0.8 mg/dL (0.6-1.3); POTASSIUM 3.8 mmol/L (3.5-5.1)
[2016-09-05 09:47] LABS: INR 1.3; PROTIME 13.5 Seconds (9.3-11.4)
[2016-09-05 12:00] VITALS: BP 110/70
[2016-09-05 17:00] VITALS: BP 118/65
[2016-09-05 20:02] VITALS: BP 132/63
[2016-09-06] VITALS (11 sets, daily range): BP systolic 112–134; BP diastolic 56–82
[2016-09-06 04:24] LABS: % SATURATION 9 % (20-39); IRON 27 ug/dL (50-170); TIBC 301 ug/dL (250-450); UIBC 274 ug/dL
[2016-09-06 05:11] LABS: FOLIC ACID 19.6 ng/mL (8.6-58.9)
[2016-09-06 07:55] LABS: HEMATOCRIT 29.3 % (37.0-47.0); HEMOGLOBIN 10.1 gm/dL (12.0-15.0); MANUAL DIFF YES; MCH 32.2 pg (26.0-34.0); MCHC 34.3 g/dL (28.0-37.0); MCV 93.8 fL (80.0-100.0); RBC 3.13 mil/uL (4.20-5.00); RDW 15.4 % (10.5-14.5); WBC 5.4 thou/uL (4.0-11.0)
[2016-09-06 08:19] LABS: TOTAL CELL COUNT 100
[2016-09-06 08:20] LABS: ABSOLUTE NEUTROPHILS 3.1 thou/uL (1.4-8.2)
[2016-09-06 08:21] LABS: PLATELET COUNT 69 thou/uL (150-400)
[2016-09-07 03:27] VITALS: BP 134/60
[2016-09-07 07:45] VITALS: BP 117/50
[2016-09-07 08:36] LABS: ABSOLUTE NEUTROPHILS 2.7 thou/uL (1.4-8.2); BASOPHILS 1.3 % (0.0-2.0); HEMATOCRIT 30.2 % (37.0-47.0); HEMOGLOBIN 10.3 gm/dL (12.0-15.0); LYMPHOCYTES 32.8 % (24.0-44.0); MCH 31.8 pg (26.0-34.0); MCHC 34.1 g/dL (28.0-37.0); MCV 93.2 fL (80.0-100.0); PLATELET COUNT 84 thou/uL (150-400); POLYS 48.9 % (36.0-66.0); RBC 3.24 mil/uL (4.20-5.00); RDW 15.6 % (10.5-14.5); WBC 5.4 thou/uL (4.0-11.0)
[2016-09-07 08:38] LABS: MANUAL DIFF NO
[2016-09-07] MEDS ORDERED: FONDAPARIN10 MG/0.8 SUBQ (11:34)
[2016-09-07] MEDS ORDERED: OXYCODONE HCL 55 MG PO ×2 (11:37→13:03)
[2016-09-07 11:48] VITALS: BP 110/59
[2016-09-07 12:48] VITALS: BP 110/59
[2016-09-07 14:19] VITALS: BP 110/59
== END 2016-09-07 14:13 | disposition home or self-care (01) | DRG 219 ==
LOC: PRE 08:39 → TBA 08-30 05:11 → ICU 08-30 05:11 → PRE 08-30 11:00 → ICU 08-30 14:12 → PRE 08-31 10:30 → 2N 09-01 14:06
PROVIDERS: Family Medicine; Hospitalist; Internal Medicine Hematology & Oncology; Physician Assistant; Surgery Vascular Surgery
PROC: 5A1221Z Performance of Cardiac Output, Continuous (ICD-10-PCS; principal; 2016-08-30)
PROC: 30233K1 Transfusion of Nonautologous Frozen Plasma into Peripheral Vein, Percutaneous Approach (ICD-10-PCS; principal; 2016-08-30)
PROC: B24BZZ4 Ultrasonography of Heart with Aorta, Transesophageal (ICD-10-PCS; principal; 2016-08-30)
PROC: 02RF08Z Replacement of Aortic Valve with Zooplastic Tissue, Open Approach (ICD-10-PCS; principal; 2016-08-30)
PROC: 30233R1 Transfusion of Nonautologous Platelets into Peripheral Vein, Percutaneous Approach (ICD-10-PCS; principal; 2016-08-30)
PROC: 30233L1 Transfusion of Nonautologous Fresh Plasma into Peripheral Vein, Percutaneous Approach (ICD-10-PCS; principal; 2016-08-30)
PROC: 5A1935Z Respiratory Ventilation, Less than 24 Consecutive Hours (ICD-10-PCS; principal; 2016-08-30)
DX: I35.0 Nonrheumatic aortic (valve) stenosis (principal); J18.9 Pneumonia, unspecified organism; I50.30 Unspecified diastolic (congestive) heart failure; K74.69 Other cirrhosis of liver; D75.82 Heparin induced thrombocytopenia (HIT); D50.9 Iron deficiency anemia, unspecified; K75.81 Nonalcoholic steatohepatitis (NASH); E11.9 Type 2 diabetes mellitus without complications; E66.9 Obesity, unspecified; I49.9 Cardiac arrhythmia, unspecified; K21.9 Gastro-esophageal reflux disease without esophagitis; R53.81 Other malaise; J45.909 Unspecified asthma, uncomplicated; I10 Essential (primary) hypertension; E03.9 Hypothyroidism, unspecified; Y95 Nosocomial condition; Z68.37 Body mass index [BMI] 37.0-37.9, adult; Z88.6 Allergy status to analgesic agent; Z91.048 Other nonmedicinal substance allergy status; Z98.84 Bariatric surgery status; Z79.82 Long term (current) use of aspirin; Z98.61 Coronary angioplasty status; Z90.710 Acquired absence of both cervix and uterus; Z90.49 Acquired absence of other specified parts of digestive tract; Z91.018 Allergy to other foods; Z82.49 Family history of ischemic heart disease and other diseases of the circulatory system; Z79.899 Other long term (current) drug therapy; Z23 Encounter for immunization; Z87.891 Personal history of nicotine dependence
CPT/HCPCS: 10078; 10081; 47000; 47001; 47002; 47297; 47335; 48888; 50409; 50456; 51932; 52131; 52259; 53327; 53358; 54118; 55022; 55415; 56524; 56525; 56526; 56527; 56528; 56531; 56534; 56660; 57080; 57082; 57093; 62110; 62950; 64029; 65002; 65003; 65020; 65043; 65090; 65120

== ENCOUNTER → 2018-05-14 | Outpatient (CLI) | payer BC, OTHER ==
[~2018-05-14] MED LIST changes: +ASPIR 8181 MG PO; +CARAFATE 1 GM TA1 G1 PO; +CARVEDILOL6.25 MG PO; +FERREX 150 PLU1 EAC1 PO; +FONDAPARIN10 MG/0.8 SUBQ; +K-DUR 20 MEQ T20 MEQ PO; +LASIX 20 MG TAB20 MG PO; +OXYCODONE HCL 55 MG PO; +PACERONE 200 M200 M1 PO; +PANTOPRAZOLE SO40 M1 PO
--- NOTE | ~2018-05-14 | 2DMMODE ---
[facility] [place] [address] 2 D/M-MODE ECHOCARDIOGRAM Name: HI TAPIA Room #: [facility]#: [id number] Admission: 05/14/18 Attend Phys: Floyd Foster MD Discharge: Date of : 56 Date of Service: 05/14/18 1019 Report #: [id number] THIS REPORT FOR: //name// APPROVED REPORT Study performed: 05/14/2018 08:54:07 EXAM: Comprehensive 2D, Doppler, and color-flow Echocardiogram Patient Location: Out-Patient Room #: Echo lab 2 Status: routine BSA: 1.91 HR: 49 bpm BP: 108/68 mmHg Rhythm: Bradycardia Other Information Study Quality: Good Indications Aortic Valve Disease 2D Dimensions RVDd: 51.52 mm IVSd: 9.04 (7-11mm) LVOT Diam: 20.27 (18-24mm) LVDd: 48.63 mm PWd: 8.94 (7-11mm) Ascending Ao: 30.41 (22-36mm) LVDs: 31.46 (25-40mm) Aortic Root: 30.43 mm IVC: 14.00 mm Volumes Left Atrial Volume (Systole) Single Plane 4CH: 52.84 mL Single Plane 2CH: 85.58 mL LA ESV Index: 42.00 mL/m2 Aortic Valve AoV Peak Jimmy.: 3.08 m/s AO Peak Gr.: 37.94 mmHg LVOT Max P.09 mmHg AO Mean Gr.: 22.66 mmHg LVOT Mean P.31 mmHg AO V2 Mean: 2.26 m/s LVOT Max V: 1.33 m/s AO V2 VTI: 84.33 cm LVOT Mean V: 0.97 m/s BROOKE (VTI): 1.44 cm2 LVOT V1 VTI: 37.70 cm BROOKE Vmax: 1.39 cm2 SV (LVOT): 121.56 mL [facility] [place] [address] [place] [address] 2 D/M-MODE ECHOCARDIOGRAM Name: HI TAPIA Room #: [facility]#: [id number] Admission: 05/14/18 Attend Phys: Floyd Foster MD Discharge: Date of : 56 Date of Service: 05/14/18 1019 Report #: [id number] Mitral Valve MV Peak Gr.: 10.67 mmHg MV Mean Gr.: 3.03 mmHg E/A Ratio: 1.5 MV Decel. Time: 298.02 ms MV E Max Jimmy.: 1.56 m/s MV A Jimmy.: 1.01 m/s MV Max Jimmy.: 1.63 m/s MV Mean Jimmy.: 0.78 m/s MV VTI: 597.71 mm MVA VTI: 203.37 mm2 MV PHT: 86.43 ms MVA (PHT): 1.84 cm2 IVRT: 73.82 ms Pulmonary Valve PV Peak Jimmy.: 1.16 m/s PV Peak Gr.: 5.42 mmHg Pulmonary Vein P Vein S: 0.72 m/s P Vein A: 0.21 m/s P Vein D: 0.81 m/s P Vein A Dur.: 87.7 msec P Vein S/D Ratio: 0.89 Tricuspid Valve TR Peak Jimmy.: 2.53 m/s TR Peak Gr.: 25.68 mmHg PA Pressure: 31.00 mmHg Left Ventricle The left ventricle is normal size. There is normal LV segmental wall motion. There is normal left ventricular wall thickness. The left ventricular systolic function is normal. The left ventricular ejection fraction is within the normal range. LVEF is 60-65%. Right Ventricle The right ventricular systolic function is normal. Atria Left atrium is dilated. Right atrium is dilated. Aortic Valve Bovine 21 mm Jovita Bioprosthetic aortic valve Trace aortic regurgitation. Mitral Valve There is mitral annular calcification. Mitral valve leaflets are mildly thickened. Mild mitral regurgitation. No evidence of mitral [address] [address] 2 D/M-MODE ECHOCARDIOGRAM Name: HI TAPIA Room #: [facility]#: [id number] Admission: 05/14/18 Attend Phys: Floyd Foster MD Discharge: Date of : 56 Date of Service: 05/14/18 1019 Report #: [id number] valve stenosis. Tricuspid Valve The tricuspid valve is normal in structure. There is mild tricuspid regurgitation. Estimated PAP 31 mmHg. There is mild pulmonary hypertension. Pulmonic Valve The pulmonary valve is normal in structure. Trace pulmonic regurgitation. Great Vessels The aortic root is normal in size. IVC is normal in size and collapses >50% with inspiration. Pericardium There is no pericardial effusion. <Conclusion> The left ventricle is normal size. There is normal left ventricular wall thickness. The left ventricular systolic function is normal. Left atrium is dilated. Bovine 21 mm Jovita Bioprosthetic aortic valve Trace aortic regurgitation. Mild mitral regurgitation. There is mild tricuspid regurgitation. Estimated PAP 31 mmHg. <ELECTRONICALLY SIGNED> By: Floyd Foster MD 05/14/18 1019 1019 1019 Floyd Foster MD /INF
== END ==
LOC: CV 08:17
DX: I08.1 Rheumatic disorders of both mitral and tricuspid valves (principal); I27.20 Pulmonary hypertension, unspecified

== ENCOUNTER 2019-02-04 13:23 | Inpatient (IN) | payer BC, OTHER ==
[~2019-02-04] VITALS: Ht 165.1 cm; Wt 81.6 kg
[2019-02-04 13:26] VITALS: BP 145/72
[2019-02-04 14:02] LABS: HEMATOCRIT 39.4 % (37.0-47.0); HEMOGLOBIN 13.6 gm/dL (12.0-15.0); MCH 31.7 pg (26.0-34.0); MCHC 34.4 g/dL (28.0-37.0); MCV 92.1 fL (80.0-100.0); RBC 4.28 mil/uL (4.20-5.00); RDW 15.1 % (10.5-14.5); WBC 4.1 thou/uL (4.0-11.0)
[2019-02-04 14:09] LABS: CALCIUM 9.1 mg/dL (8.5-10.1); CREATININE 0.6 mg/dL (0.6-1.0); POTASSIUM 3.1 mmol/L (3.5-5.1)
[2019-02-04 14:15] LABS: ALBUMIN 3.4 g/dL (3.4-5.0); TOTAL BILIRUBIN 2.6 mg/dL (<0.1-1.0); TOTAL PROTEIN 6.5 g/dL (6.4-8.2)
[2019-02-04 14:18] LABS: INR 1.3; PROTIME 13.5 Seconds (9.3-11.4)
[2019-02-04 14:27] LABS: ABSOLUTE NEUTROPHILS 2.3 thou/uL (1.4-8.2); PLATELET COUNT 96 thou/uL (150-400)
[2019-02-04 14:28] LABS: APTT 30.7 Seconds (24.5-32.8)
--- NOTE | 2019-02-04 15:21 | 2DMMODE ---
[facility] [place] [address] 2 D/M-MODE ECHOCARDIOGRAM Name: HI TAPIA Room #: [facility]#: [id number] Admission: 02/04/19 Attend Phys: Discharge: Date of : 56 Date of Service: 02/04/19 1521 Report #: [id number] THIS REPORT FOR: //name// APPROVED REPORT Study performed: 02/04/2019 14:41:57 EXAM: Comprehensive 2D, Doppler, and color-flow Echocardiogram Patient Location: ER Room #: 7 Status: routine BSA: 1.94 HR: 56 bpm BP: 144/75 mmHg Rhythm: NSR Other Information Study Quality: Good Indications AVR and heart failure with fluid overload. 2D Dimensions RVDd: 40.53 mm IVSd: 9.65 (7-11mm) LVDd: 46.70 mm PWd: 10.08 (7-11mm) LVDs: 27.78 (25-40mm) Aortic Root: 26.44 mm Volumes Left Atrial Volume (Systole) Single Plane 4CH: 61.46 mL Single Plane 2CH: 73.56 mL LA ESV Index: 36.00 mL/m2 Aortic Valve AoV Peak Jimmy.: 3.34 m/s AO Peak Gr.: 44.50 mmHg LVOT Max P.09 mmHg AO Mean Gr.: 25.20 mmHg AO V2 Mean: 2.35 m/s LVOT Max V: 1.51 m/s AO V2 VTI: 80.39 cm Mitral Valve MV Decel. Time: 433.17 ms MV PHT: 125.62 ms [facility] [address] [address] 2 D/M-MODE ECHOCARDIOGRAM Name: HI TAPIA [id number] Admission: 02/04/19 Attend Phys: Discharge: Date of : 56 Date of Service: 02/04/19 1521 Report #: [id number] MVA (PHT): 1.72 cm2 IVRT: 78.43 ms Pulmonary Valve PV Peak Jimmy.: 1.28 m/s PV Peak Gr.: 6.51 mmHg Pulmonary Vein P Vein S: 0.78 m/s P Vein A: 0.25 m/s P Vein D: 0.47 m/s P Vein A Dur.: 156.9 msec P Vein S/D Ratio: 1.66 Tricuspid Valve TR Peak Jimmy.: 2.47 m/s RAP Estimate: 5.00 mmHg TR Peak Gr.: 24.35 mmHg PA Pressure: 29.00 mmHg Left Ventricle The left ventricle is normal size. There is normal LV segmental wall motion. There is normal left ventricular wall thickness. Left ventricular systolic function is normal. LVEF is 65%. Moderate diastolic dysfunction is present (pseudonormal filling). Right Ventricle The right ventricle is normal size. The right ventricular systolic function is normal. Atria Left atrium is mildly dilated. Right atrium is at the upper limits of normal. Aortic Valve 22mm Bioprosthetic aortic valve is present. Peak pressure gradient through the valve is 45mmHg and a mean of 25mmHg. Trace to mild aortic regurgitation. Mitral Valve The mitral valve is normal in structure. Moderate mitral annular calcification. There is no mitral valve regurgitation noted. Tricuspid Valve The tricuspid valve is normal in structure. Mild tricuspid regurgitation. Pulmonic Valve The pulmonary valve is normal in structure. Trace pulmonic [facility] [address] [place] [address] 2 D/M-MODE ECHOCARDIOGRAM Name: HI TAPIA Room #: [facility]#: [id number] Admission: 02/04/19 Attend Phys: Discharge: Date of : 56 Date of Service: 02/04/19 1521 Report #: [id number] regurgitation. Great Vessels The aortic root is normal in size. Ascending aorta is not well visualized. IVC is normal in size and collapses >50% with inspiration. Pericardium There is no pericardial effusion. <Conclusion> The left ventricle is normal size. There is normal left ventricular wall thickness. Left ventricular systolic function is normal. Moderate diastolic dysfunction is present (pseudonormal filling). The right ventricle is normal size. Left atrium is mildly dilated. 22mm Bioprosthetic aortic valve is present. Peak pressure gradient through the valve is 45mmHg and a mean of 25mmHg. Trace to mild aortic regurgitation. Moderate mitral annular calcification. There is no mitral valve regurgitation noted. Mild tricuspid regurgitation. <ELECTRONICALLY SIGNED> By: Floyd Foster MD 02/04/19 1521 1521 1521 Floyd Foster MD /INF
[2019-02-04 16:01] LABS: URINE BILIRUBIN 1+ (Negative); URINE BLOOD NEGATIVE (Negative); URINE CLARITY CLEAR; URINE GLUCOSE-RANDOM* NEGATIVE (Negative); URINE KETONES 1+ (Negative); URINE LEUKOCYTES NEGATIVE (Negative); URINE NITRITE NEGATIVE (Negative); URINE PROTEIN (DIPSTICK) TRACE (Negative); URINE SPECIFIC GRAVITY 1.025 (1.005-1.035); URINE UROBILINOGEN >= 8.0 E.U./dl (0.2-1.0)
[2019-02-04 16:08] LABS: URINE COLOR DK YELLOW
[2019-02-04 16:09] LABS: ICTOTEST (BILI CONFIRMATORY) Positive (Negative)
[2019-02-04 18:31] VITALS: BP 107/56
[2019-02-04 18:40] VITALS: BP 116/64
[2019-02-04 19:54] VITALS: BP 127/70
--- NOTE | 2019-02-05 03:21 | NUR ---
Admission history and assessments completed. Care plan initiated. NPO after MN, meds with sips of water. Good pain control with oxycodone. Low fall risks, up adlib, gait steady. Planned for paracentesis today.
[2019-02-05 04:45] VITALS: BP 126/63
[2019-02-05 05:07] LABS: HEMATOCRIT 34.1 % (37.0-47.0); HEMOGLOBIN 11.8 gm/dL (12.0-15.0); MCH 31.8 pg (26.0-34.0); MCHC 34.6 g/dL (28.0-37.0); MCV 91.9 fL (80.0-100.0); PLATELET COUNT 84 thou/uL (150-400); RBC 3.71 mil/uL (4.20-5.00); RDW 15.3 % (10.5-14.5); WBC 3.6 thou/uL (4.0-11.0)
[2019-02-05 05:21] LABS: CALCIUM 8.5 mg/dL (8.5-10.1); CREATININE 0.5 mg/dL (0.6-1.0); POTASSIUM 3.6 mmol/L (3.5-5.1)
[2019-02-05 06:45] LABS: ABSOLUTE NEUTROPHILS 1.8 thou/uL (1.4-8.2)
[2019-02-05 06:46] LABS: PLATELET ESTIMATE DECREASED
[2019-02-05 07:46] VITALS: BP 114/67
[2019-02-05 11:40] LABS: CLARITY CLOUDY; COLOR YELLOW; SOURCE ABDOMINAL; TOTAL VOLUME 25 mL
[2019-02-05 11:43] LABS: BF NUCLEATED CELLS 406; BF RBC 3276
[2019-02-05 11:46] LABS: SOURCE ABDOMINAL
[2019-02-05 12:12] LABS: BF MACROPHAGE 14; BF NEUTROPHILS 32
--- NOTE | 2019-02-05 12:28 | NUR ---
ASSESSMENT: CM REVIEWED CHART AND MET WITH PATIENT AT THE BEDSIDE. PT WAS ADMITTED WITH CIRROHSIS/ASCITES. PT HAD PARACENTESIS. PT IS ALERT AND ORIENTED X4. PT LIVES IN A HOUSE WITH HER , SON, AND MOTHER. PT REPORTS SHE HAS TWO STEPS WITH NO HANDRAILS TO ENTER AND REPORTS ALL HER NEEDS ARE ON ONE LEVEL. PT REPORTS SHE DOES HAVE A FULL FLIGHT TO HER BASEMENT BUT DOES NOT GO DOWN THERE. PT REPORTS AMBULATING INDEPENDENTLY BUT DOES HAVE A CANE AT HOME. PT REPORTS HAVING A GRAB BAR AND SHOWER CHAIR AND IS INDEPENDENT WITH ADLS. PT REPORTS SHE HAS NOT HAD HH IN THE PAST OR BEEN TO A SNF. CM DISCUSSED ROLE. PT DOES NOT ANTICIPATE ANY NEEDS AT DISCHARGE. CM WILL CONTINUE TO FOLLOW.
[2019-02-05 15:59] LABS: % SATURATION 12 % (20-39); IRON 44 ug/dL (50-170); TIBC 354 ug/dL (250-450)
[2019-02-05 16:03] VITALS: BP 129/99
--- NOTE | 2019-02-05 18:25 | NUR ---
ASSUMED PATIENT CARE AT 0700. A/O X4. PATIENT HAD PARACENTESIS TODAY 7.5L MOVED. VSS. AMBULATED IN ROOM. SLOWLY TOWARDS POC GOALS.
[2019-02-05 20:28] VITALS: BP 125/76
[2019-02-06 03:04] VITALS: BP 111/55
--- NOTE | 2019-02-06 06:02 | NUR ---
PAIN MANAGEMENT WAS GOAL FOR THE SHIFT, 2X OVER SHIFT PT STATES SHE IS HAVING PAIN THE BACK ASSOCIATED WITH THE EXTRA FLUID SHE WAS CARRYING. GAVE ORAL PAIN MEDICATIONS AND HAD GOOD RELIEF. VSS AND PT IS ON ROOM AIR. PT AMBULATES TO BATHROOM AD BATSHEVA. OF PT ROOMING IN. PT CALLS WITH CALL LIGHT TO ASK FOR ASSISTANCE. HOURLY ROUNDING.
[2019-02-06 07:21] VITALS: BP 127/83
[2019-02-06 11:46] LABS: INR 1.3; PROTIME 13.7 Seconds (9.3-11.4)
[2019-02-06 12:37] LABS: ALBUMIN 2.9 g/dL (3.4-5.0); CALCIUM 8.8 mg/dL (8.5-10.1); CREATININE 0.7 mg/dL (0.6-1.0); POTASSIUM 3.8 mmol/L (3.5-5.1); TOTAL BILIRUBIN 1.9 mg/dL (<0.1-1.0)
--- NOTE | 2019-02-06 13:53 | NUR ---
RD consult received for low Na diet. Pt progressing liver disease, ascites. Had gastric bypass in 2011 and able to maintain wt around 175 lb, then had rapid gain of ~15 lb fluid. S/P paracentesis, removal 7.5 liters. On diuretics lasix/spironolactone. Pt already familiar with low Na diet and follows at home. Focuses on higher protein intake. Has menu to make own food selections. Eats more smaller, frequent meals. Low nutrition risk
--- NOTE | 2019-02-06 14:46 | NUR ---
ON-GOING ASSESSMENT: CM REVIEWED CHART. WE ARE AWAITING THE REST OF HEPATIC WORKUP. PT IS SLOWLY PROGRESSING TOWARDS GOALS. PT WILL HAVE NO NEEDS AT DISCHARGE.
[2019-02-06 15:32] VITALS: BP 129/72
[2019-02-06 17:10] LABS: IgG 848 mg/dL (700-1600)
[2019-02-06 19:05] VITALS: BP 132/64
--- NOTE | 2019-02-06 20:23 | NUR ---
PATIENT ALERT AND ORIENTED AND PLEASANT AND COMPLIANT WITH PLAN OF CARE. SEEN BY GI TODAY AND NO BM. COMPLAINS OF BACK PAIN AND TOOK PAIN MED ONE TIME TODAY.
[2019-02-07 03:28] VITALS: BP 96/56
--- NOTE | 2019-02-07 05:52 | NUR ---
PT PROGRESSING TOWARDS DC GOALS. PT WAS UP WALKING AROUND THE UNIT 3X BEFORE 2300. PT ONLY REQUESTED PAIN MEDICATION 1X, PT STATES SHE IS TRYING TO HOLD OFF TAKING PAIN MEDICATION MUCH POSSIBLE. VSS AND NO OTHER COMPLAINTS. HOURLY RUNNING.
[2019-02-07 06:08] LABS: HAV IgM AB (ANTI-HAV IgM) Negative (Negative); HEPATITIS B SURFACE AG Negative (Negative); HEPATITIS C VIRUS AB 1.7 (0.0-0.9)
[2019-02-07 07:27] VITALS: BP 104/62
--- NOTE | 2019-02-07 11:36 | NUR ---
roman called Radiology to get images on patient sent to [facility] ([facility]). Patient going to transfer to [facility]. ROMAN spoke to Maribel in radiology department about putting images in the cloud.
[2019-02-07 11:55] LABS: HEMATOCRIT 39.5 % (37.0-47.0); HEMOGLOBIN 13.4 gm/dL (12.0-15.0); MCH 31.3 pg (26.0-34.0); RBC 4.29 mil/uL (4.20-5.00); RDW 15.1 % (10.5-14.5); WBC 5.2 thou/uL (4.0-11.0)
[2019-02-07 12:08] LABS: CREATININE 0.6 mg/dL (0.6-1.0)
[2019-02-07 12:09] LABS: INR 1.3; PROTIME 13.5 Seconds (9.3-11.4)
--- NOTE | 2019-02-07 12:09 | PATH ---
[facility] [address] [place] [address] PATHOLOGY RPT PROCEDURE Name: HI TAPIA Room #: 350-P ADM IN M.R.#: [id number] Admission: 02/04/19 Date of : 56 Discharge: Report #: [id number] Path Case #: [id number] Note [facility] Accession Number: [id number] TESTS RESULT FLAG UNITS REF RANGE LAB Clinician Provided Cytology Information No. of containers..01 Other (Miscellaneous) Source: 01 ABDOMINAL FLUID DIAGNOSIS: 02 ABDOMINAL FLUID NEGATIVE FOR MALIGNANT CELLS. REACTIVE MESOTHELIAL CELLS ARE PRESENT. THIS INTERPRETATION INCLUDES EVALUATION OF A CELL BLOCK. Signed out by: 02 Gumaro Gross MD, Pathologist NPI- [id number] Performed by: 01 Andra Villeda, Well Services Operator ([facility]) Gross description: 01 11ML, ORANGE, CLEAR /LCS FLAG LEGEND: L-Low Normal,H-High Normal,LL-Alert Low,HH-Alert High <-Panic Low,>-Panic High,A-Abnormal,AA-Critical Abnormal Performed at: [address] [place] [address] Isaac Lopez MD, [address] [address] Rebecca Franco MD, Specimen Comment: A courtesy copy of this report has been sent to Specimen Comment: [phone], . Specimen Comment: Report sent to / DR BISHOP Specimen Comment: A duplicate report has been generated due to demographic updates. Performed at: [address], [place], [place] [id number] MD Isaac Lopez MD Phone: [phone]
--- NOTE | 2019-02-07 13:01 | NUR ---
ON-GOING ASSESSMENT: GUILLERMO REVIEWED CHART AND SPOKE WITH ATTENDING WHO STATES PATIENT IS NEEDING TRANSFER TO [facility] FOR LIVER SPECIALIST. GUILLERMO MET WITH PATIENT AT THE BEDSIDE TO DISCUSS AND SHE REPORTS THAT GI CAME IN AND TOLD HER THERE IS NO NEED TO TRANSFER TO ANOTHER HOSPITAL AND THAT SHE IS TO HAVE FLUID REMOVED TOMORROW AND SOME CHANGES IN HER MEDICATIONS AND SHE WILL FOLLOW UP WITH [facility] OR OUTPATIENT. GUILLERMO REACHED OUT TO DR. MANSFIELD TO CLARIFY AND SHE STATES TO TALK WITH GI AND IF THEY DO NOT FEEL SHE NEEDS TRANSFERED THEN TO NOTIFY HER. GUILLERMO SPOKE WITH LIZA RICHARDSON FOR GI WHO STATES THERE IS NO EMERGENT NEED TO TRANFER TO ANOTHER HOSPITAL AT THIS TIME. SHE STATES IF DR. MANSFIELD HAS ANY QUESTIONS THEN SHE CAN CONTACT HER. GUILLERMO NOTIFIED DR. MANSFIELD WELL PT AND BEDSIDE RN THAT THERE IS NO NEED TO TRANSFER TO ANOTHER HOSPITAL AT THIS TIME.
[2019-02-07 14:07] LABS: ANA INTERPRETATION Negative (Negative); CERULOPLASMIN 25.8 mg/dL (19.0-39.0)
[2019-02-07 15:36] VITALS: BP 123/84
[2019-02-07 19:30] VITALS: BP 135/88
--- NOTE | 2019-02-07 20:04 | NUR ---
PATIENT ASSESSMENTS DOCUMENTED. PATIENT VERY PLEASANT, ALERT AND ORIENTED. SHE IS UP AD BATSHEVA IN HER ROOM. PAIN MEDICATION GIVEN WELL A KPAD PER PHYSICIAN ORDER. PATIENT EXPRESSED THIS HAS HELPED. INTAKE AND OUTPUT NOTED. REPORT GIVEN TO [employer] SALES REPRESENTATIVE RN FOR CONTINUATION OF CARE. [employer] SALES REPRESENTATIVE RN NOTED THE MESSAGE ABOUT DAILY WEIGHTS NEEDING TO BE PERFORMED. THIS WILL BE DONE. PATIENT TO HAVE PARACENTESIS TOMORROW PER GI.
[2019-02-08 03:55] VITALS: BP 124/79
--- NOTE | 2019-02-08 05:09 | NUR ---
PT HAD CYCLES OF SLEEP/WAKE D/T PAIN WHICH REQUIRED MEDICATION.
[2019-02-08 05:46] LABS: ALBUMIN 2.9 g/dL (3.4-5.0); DIRECT BILIRUBIN 0.9 mg/dL (<0.1-0.3); TOTAL BILIRUBIN 2.2 mg/dL (<0.1-1.0); TOTAL PROTEIN 5.7 g/dL (6.4-8.2)
[2019-02-08 07:34] VITALS: BP 107/62
[2019-02-08] MEDS ORDERED: ALDACTONE50 MG PO ×2 (11:50→13:13)
[2019-02-08] MEDS ORDERED: OXYCODONE HCL 55 MG PO (11:51)
--- NOTE | 2019-02-08 13:31 | NUR ---
ON-GOING ASSESSMENT: PT HAS ORDERS TO DISCHARGE HOME WITH NO NEEDS. PT REPORTS HAVING NO NEEDS FROM CM. PTS FAMILY IS SUPPORTIVE.
--- NOTE | 2019-02-08 13:52 | NUR ---
ASSUMED CARE OF PT AT 0700 THIS SHIFT. PT HAS BEEN COOPERATIVE, HAS HAD DENIED PAIN IN THE MORNING HOWEVER PT HAD PARASENTHESIS DONE THIS SHIFT, AND HAD SEVERE BACKPAIN AFTER PROCEDURE. PT HAD 5L TAKEN OFF WITH PARASENTHESIS, AFTER ALBUMIN INFUSION PT HAS DISCHARGE ORDERS. ASSESSMENTS ARE DOCUMENTED. PT HAS HAD SPOSE IN ROOM THIS SHIFT, EDUCATION WAS PROVIDED. PLAN OF CARE IS TO DISCHARGE PT HOME.
[2019-02-08 14:51] VITALS: BP 107/62
--- NOTE | 2019-02-08 14:59 | NUR ---
IV AND TELE DISCONTINUED. POT UNDERSTANDS ALL FOLLOW UP ORDERS. WILL DC TO HOME.
[2019-02-08 19:07] LABS: BODY FLUID ALBUMIN 1.1 g/dL (()); BODY FLUID AMYLASE 9 U/L (()); BODY FLUID GLUCOSE 97 mg/dL (()); BODY FLUID LDH 91 IU/L (()); BODY FLUID PROTEIN 1.7 g/dL (())
== END 2019-02-08 15:45 | disposition home or self-care (01) | DRG 432 ==
LOC: ER 13:23 → EROBS 16:34 → 3W 16:34 → ENTRNSPT 02-08 15:03 → EDTRNSPTSTS 02-08 15:05 → 3W 02-08 15:45
PROVIDERS: Emergency Medicine; Internal Medicine Gastroenterology; Nurse Practitioner; ADMIT Internal Medicine
PROC: 0W9G3ZZ Drainage of Peritoneal Cavity, Percutaneous Approach (ICD-10-PCS; principal; 2019-02-05)
PROC: 0W9G3ZZ Drainage of Peritoneal Cavity, Percutaneous Approach (ICD-10-PCS; 2019-02-08)
DX: K74.69 Other cirrhosis of liver (principal); I50.33 Acute on chronic diastolic (congestive) heart failure; R18.8 Other ascites; I85.00 Esophageal varices without bleeding; I11.0 Hypertensive heart disease with heart failure; E66.9 Obesity, unspecified; E03.9 Hypothyroidism, unspecified; K21.9 Gastro-esophageal reflux disease without esophagitis; J45.909 Unspecified asthma, uncomplicated; I35.0 Nonrheumatic aortic (valve) stenosis; D75.82 Heparin induced thrombocytopenia (HIT); D50.9 Iron deficiency anemia, unspecified; E87.70 Fluid overload, unspecified; Z95.820 Peripheral vascular angioplasty status with implants and grafts; Z95.1 Presence of aortocoronary bypass graft; Z68.30 Body mass index [BMI] 30.0-30.9, adult; Z95.828 Presence of other vascular implants and grafts; Z90.49 Acquired absence of other specified parts of digestive tract; Z88.6 Allergy status to analgesic agent; Z88.8 Allergy status to other drugs, medicaments and biological substances; Z87.891 Personal history of nicotine dependence; Z79.82 Long term (current) use of aspirin; Z79.899 Other long term (current) drug therapy; Z82.49 Family history of ischemic heart disease and other diseases of the circulatory system; Z95.2 Presence of prosthetic heart valve
CPT/HCPCS: 10879

== ENCOUNTER 2019-02-26 12:01 | Emergency (ER) | payer BC, OTHER ==
[~2019-02-26] VITALS: Ht 165.1 cm; Wt 81.2 kg
[~2019-02-26 12:01] MED LIST changes: +ALDACTONE50 MG PO
[2019-02-26 12:53] LABS: HEMATOCRIT 37.3 % (37.0-47.0); HEMOGLOBIN 12.9 gm/dL (12.0-15.0); MCH 31.3 pg (26.0-34.0); MCHC 34.6 g/dL (28.0-37.0); MCV 90.4 fL (80.0-100.0); PLATELET COUNT 182 thou/uL (150-400); RBC 4.12 mil/uL (4.20-5.00); RDW 14.4 % (10.5-14.5); WBC 6.7 thou/uL (4.0-11.0)
[2019-02-26 13:02] LABS: CALCIUM 8.8 mg/dL (8.5-10.1); CREATININE 0.7 mg/dL (0.6-1.0); POTASSIUM 4.4 mmol/L (3.5-5.1)
[2019-02-26 13:08] LABS: ALBUMIN 2.7 g/dL (3.4-5.0); TOTAL BILIRUBIN 2.2 mg/dL (<0.1-1.0); TOTAL PROTEIN 6.5 g/dL (6.4-8.2)
[2019-02-26 13:23] LABS: APTT 40.2 Seconds (24.5-32.8); INR 1.6; PROTIME 16.7 Seconds (9.3-11.4)
[2019-02-26 14:05] LABS: ABSOLUTE NEUTROPHILS 4.8 thou/uL (1.4-8.2); ANISOCYTOSIS 1+
[2019-02-26 17:53] VITALS: BP 113/77
== END 2019-02-26 17:54 | disposition home or self-care (01) ==
LOC: ER 12:01
PROVIDERS: Emergency Medicine
DX: R18.8 Other ascites (principal); E03.9 Hypothyroidism, unspecified; K74.69 Other cirrhosis of liver; K21.9 Gastro-esophageal reflux disease without esophagitis; J45.909 Unspecified asthma, uncomplicated; Z90.710 Acquired absence of both cervix and uterus; Z90.49 Acquired absence of other specified parts of digestive tract; Z88.6 Allergy status to analgesic agent; Z88.8 Allergy status to other drugs, medicaments and biological substances; Z91.018 Allergy to other foods; Z91.048 Other nonmedicinal substance allergy status; Z87.891 Personal history of nicotine dependence

== ENCOUNTER 2019-03-08 10:59 | Emergency (ER) | payer BC, OTHER ==
[~2019-03-08] VITALS: Ht 165.1 cm; Wt 80.3 kg
[2019-03-08 12:58] LABS: HEMATOCRIT 38.4 % (37.0-47.0); HEMOGLOBIN 13.1 gm/dL (12.0-15.0); MCH 31.1 pg (26.0-34.0); MCHC 34.2 g/dL (28.0-37.0); MCV 90.8 fL (80.0-100.0); PLATELET COUNT 260 thou/uL (150-400); RBC 4.22 mil/uL (4.20-5.00); RDW 14.5 % (10.5-14.5)
[2019-03-08 13:03] LABS: CALCIUM 8.5 mg/dL (8.5-10.1); CREATININE 0.6 mg/dL (0.6-1.0); POTASSIUM 4.3 mmol/L (3.5-5.1)
[2019-03-08 13:10] LABS: ALBUMIN 2.3 g/dL (3.4-5.0); TOTAL BILIRUBIN 1.6 mg/dL (<0.1-1.0); TOTAL PROTEIN 5.9 g/dL (6.4-8.2)
[2019-03-08 13:14] LABS: APTT 33.5 Seconds (24.5-32.8); INR 1.2; PROTIME 12.5 Seconds (9.3-11.4)
[2019-03-08] MEDS ORDERED: TRIAMCINOLONE A15 G3 TOP (15:36)
[2019-03-08 15:40] VITALS: BP 102/35
== END 2019-03-08 15:40 | disposition home or self-care (01) ==
LOC: ER 10:59
PROVIDERS: Emergency Medicine
DX: R18.8 Other ascites (principal); K74.60 Unspecified cirrhosis of liver; M54.9 Dorsalgia, unspecified; G89.29 Other chronic pain; E03.9 Hypothyroidism, unspecified; E66.9 Obesity, unspecified; K21.9 Gastro-esophageal reflux disease without esophagitis; J45.909 Unspecified asthma, uncomplicated; Z87.891 Personal history of nicotine dependence; Z91.048 Other nonmedicinal substance allergy status; Z88.6 Allergy status to analgesic agent; Z88.8 Allergy status to other drugs, medicaments and biological substances; Z91.018 Allergy to other foods; Z90.49 Acquired absence of other specified parts of digestive tract; Z90.89 Acquired absence of other organs; Z90.710 Acquired absence of both cervix and uterus; Z68.29 Body mass index [BMI] 29.0-29.9, adult

== ENCOUNTER → 2019-03-15 | Outpatient (CLI) | payer BC, OTHER ==
[~2019-03-15] MED LIST changes: +ALDACTONE100 MG PO; +TRIAMCINOLONE A15 G3 TOP
[2019-03-15 12:26] LABS: HEMATOCRIT 40.2 % (37.0-47.0); HEMOGLOBIN 13.7 gm/dL (12.0-15.0); MCH 30.9 pg (26.0-34.0); MCV 90.9 fL (80.0-100.0); RBC 4.43 mil/uL (4.20-5.00); RDW 14.5 % (10.5-14.5); WBC 9.8 thou/uL (4.0-11.0)
[2019-03-15 12:38] LABS: INR 1.2; PROTIME 12.7 Seconds (9.3-11.4)
[2019-03-15 12:40] LABS: ALBUMIN 2.4 g/dL (3.4-5.0); CALCIUM 8.7 mg/dL (8.5-10.1); CREATININE 0.7 mg/dL (0.6-1.0); TOTAL PROTEIN 5.6 g/dL (6.4-8.2)
[2019-03-15 13:51] LABS: POTASSIUM 4.6 mmol/L (3.5-5.1)
== END | disposition home or self-care (01) ==
LOC: ULTRA 11:48
PROVIDERS: Specialist
DX: R18.8 Other ascites (principal); K76.9 Liver disease, unspecified; D50.9 Iron deficiency anemia, unspecified; E03.9 Hypothyroidism, unspecified; G89.29 Other chronic pain; M54.9 Dorsalgia, unspecified; Z79.01 Long term (current) use of anticoagulants; Z95.2 Presence of prosthetic heart valve; Z98.84 Bariatric surgery status

== ENCOUNTER 2019-03-19 11:26 | Emergency (ER) | payer BC, OTHER ==
[~2019-03-19] VITALS: Ht 165.1 cm; Wt 69.0 kg
[~2019-03-19 11:26] MED LIST changes: -ALDACTONE100 MG PO
[2019-03-19 12:01] LABS: HEMOGLOBIN 14.2 gm/dL (12.0-15.0); MCH 31.2 pg (26.0-34.0); MCHC 34.7 g/dL (28.0-37.0); MCV 89.9 fL (80.0-100.0); PLATELET COUNT 267 thou/uL (150-400); RBC 4.56 mil/uL (4.20-5.00); WBC 9.1 thou/uL (4.0-11.0)
[2019-03-19 12:08] LABS: ANION GAP 4 mmol/L (7-16); BUN 12 mg/dL (7-18); CALCIUM 8.7 mg/dL (8.5-10.1); CHLORIDE 90 mmol/L (98-107); CO2 29 mmol/L (21-32); CREATININE 0.8 mg/dL (0.6-1.0); GLUCOSE 189 mg/dL (74-106); POTASSIUM 4.5 mmol/L (3.5-5.1); SODIUM 123 mmol/L (136-145)
[2019-03-19 12:18] LABS: ALBUMIN 2.3 g/dL (3.4-5.0); SGOT 50 U/L (15-37); SGPT 31 U/L (30-65); TOTAL BILIRUBIN 1.5 mg/dL (<0.1-1.0); TOTAL PROTEIN 5.9 g/dL (6.4-8.2); TROPONIN-I <0.06 ng/mL (<0.06)
[2019-03-19 12:40] LABS: ABSOLUTE NEUTROPHILS 6.7 thou/uL (1.4-8.2); PLATELET ESTIMATE NORMAL
[2019-03-19] MEDS ORDERED: ALDACTONE100 MG PO (14:24)
[2019-03-19 14:25] VITALS: BP 93/56
--- NOTE | 2019-03-20 08:01 | EKG ---
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
== END 2019-03-19 14:25 | disposition home or self-care (01) ==
LOC: ER 11:26
PROVIDERS: Physician Assistant
DX: E87.1 Hypo-osmolality and hyponatremia (principal); M54.12 Radiculopathy, cervical region; R42 Dizziness and giddiness; E03.9 Hypothyroidism, unspecified; K21.9 Gastro-esophageal reflux disease without esophagitis; J45.909 Unspecified asthma, uncomplicated; Z90.89 Acquired absence of other organs; Z90.49 Acquired absence of other specified parts of digestive tract; E66.9 Obesity, unspecified; Z68.25 Body mass index [BMI] 25.0-25.9, adult; Z90.710 Acquired absence of both cervix and uterus; Z98.84 Bariatric surgery status; Z98.890 Other specified postprocedural states; Z88.6 Allergy status to analgesic agent; Z91.048 Other nonmedicinal substance allergy status; Z88.8 Allergy status to other drugs, medicaments and biological substances; Z87.891 Personal history of nicotine dependence

== ENCOUNTER → 2019-03-22 | Outpatient (CLI) | payer BC, OTHER ==
[~2019-03-22] MED LIST changes: +ALBUMIN (HUMAN100 M1 IV; +ALDACTONE100 MG PO
[2019-03-22 12:32] LABS: HEMATOCRIT 40.7 % (37.0-47.0); HEMOGLOBIN 13.9 gm/dL (12.0-15.0); MCH 31.1 pg (26.0-34.0); MCHC 34.2 g/dL (28.0-37.0); MCV 90.8 fL (80.0-100.0); RBC 4.48 mil/uL (4.20-5.00); WBC 10.1 thou/uL (4.0-11.0)
[2019-03-22 12:40] LABS: INR 1.2; PROTIME 12.2 Seconds (9.3-11.4)
[2019-03-22 12:41] LABS: CALCIUM 8.6 mg/dL (8.5-10.1); CREATININE 0.7 mg/dL (0.6-1.0); POTASSIUM 5.7 mmol/L (3.5-5.1)
[2019-03-22 12:49] LABS: ALBUMIN 2.3 g/dL (3.4-5.0); TOTAL BILIRUBIN 1.6 mg/dL (<0.1-1.0); TOTAL PROTEIN 5.5 g/dL (6.4-8.2)
== END | disposition home or self-care (01) ==
LOC: ULTRA 12:04
PROVIDERS: Specialist
DX: R18.8 Other ascites (principal); D50.9 Iron deficiency anemia, unspecified; D69.6 Thrombocytopenia, unspecified; G89.29 Other chronic pain; Z79.899 Other long term (current) drug therapy; Z88.8 Allergy status to other drugs, medicaments and biological substances; Z79.82 Long term (current) use of aspirin

== ENCOUNTER → 2019-03-29 | Outpatient (CLI) | payer BC, OTHER | END | disposition home or self-care (01) | LOC: ULTRA 12:17 | DX: R18.8 Other ascites (principal); D50.9 Iron deficiency anemia, unspecified; E03.9 Hypothyroidism, unspecified; M54.5 Low back pain; G89.29 Other chronic pain; Z98.84 Bariatric surgery status; Z79.01 Long term (current) use of anticoagulants; Z95.2 Presence of prosthetic heart valve; Z79.899 Other long term (current) drug therapy; Z79.82 Long term (current) use of aspirin; Z98.890 Other specified postprocedural states ==

== ENCOUNTER → 2019-04-05 | Outpatient (CLI) | payer BC, OTHER | END | disposition home or self-care (01) | LOC: ULTRA 12:30 | DX: R18.8 Other ascites (principal); D50.9 Iron deficiency anemia, unspecified; E03.9 Hypothyroidism, unspecified; M54.5 Low back pain; G89.29 Other chronic pain; Z98.84 Bariatric surgery status; Z79.899 Other long term (current) drug therapy; Z79.82 Long term (current) use of aspirin; Z98.890 Other specified postprocedural states; Z87.19 Personal history of other diseases of the digestive system ==

== ENCOUNTER → 2019-04-12 | Outpatient (CLI) | payer BC, OTHER | END | disposition home or self-care (01) | LOC: ULTRA 12:16 | DX: R18.8 Other ascites (principal); R14.0 Abdominal distension (gaseous); E03.9 Hypothyroidism, unspecified; M54.9 Dorsalgia, unspecified; G89.29 Other chronic pain; Z98.890 Other specified postprocedural states; Z98.84 Bariatric surgery status; Z79.01 Long term (current) use of anticoagulants; Z95.2 Presence of prosthetic heart valve; Z88.8 Allergy status to other drugs, medicaments and biological substances; Z79.899 Other long term (current) drug therapy; Z87.19 Personal history of other diseases of the digestive system; Z79.82 Long term (current) use of aspirin ==

== ENCOUNTER → 2019-04-19 | Outpatient (CLI) | payer BC, OTHER ==
[2019-04-19 12:20] LABS: HEMATOCRIT 39.6 % (37.0-47.0); HEMOGLOBIN 13.5 gm/dL (12.0-15.0); MCHC 34.1 g/dL (28.0-37.0); MCV 90.7 fL (80.0-100.0); RBC 4.37 mil/uL (4.20-5.00); RDW 15.4 % (10.5-14.5); WBC 9.2 thou/uL (4.0-11.0)
[2019-04-19 12:32] LABS: INR 1.1; PROTIME 11.9 Seconds (9.3-11.4)
[2019-04-19 13:03] LABS: ALBUMIN 2.1 g/dL (3.4-5.0); CALCIUM 8.2 mg/dL (8.5-10.1); CREATININE 0.8 mg/dL (0.6-1.0); MAGNESIUM 1.9 mg/dL (1.8-2.4); POTASSIUM 4.2 mmol/L (3.5-5.1); TOTAL BILIRUBIN 1.2 mg/dL (<0.1-1.0); TOTAL PROTEIN 4.8 g/dL (6.4-8.2)
[2019-04-19 14:05] VITALS: BP 97/59
[2019-04-19 14:42] VITALS: BP 93/52
--- NOTE | 2019-04-19 14:50 | NUR ---
ARRIVED POST PARACENTESIS FROM [facility] FOR 1ST TIME ALBUMIN REPLACEMENT. PT STATES SHE HAS BEEN QUITE WEAK LATELY, ESPECIALLY SO AFTER THE PROCEDURE. PT AND STATE THAT DR. AGUERO FEELS THE REPLACEMENT WILL BE BENEFICIAL. PT STATES THEY TOOK OFF JUST OVER 6 LITERS TODAY. ALBUMIN 25 GM GIVEN POST. VSS. PT IS QUITE WEAK, BILAT LE EDEMA BUT OTHERWISE LOOKS QUITE DRAWN. DISMISSED WITH IN STABLE CONDITION. [facility] WITH [facility] DEPT PLANS TO MAKE APPT TO RETURN AGAIN NEXT WEEK ON MON.
== END | disposition home or self-care (01) ==
LOC: ULTRA 11:47
PROVIDERS: Specialist
DX: R18.8 Other ascites (principal); R10.9 Unspecified abdominal pain; E03.9 Hypothyroidism, unspecified; M54.5 Low back pain; G89.29 Other chronic pain; D50.9 Iron deficiency anemia, unspecified; Z79.01 Long term (current) use of anticoagulants; Z95.2 Presence of prosthetic heart valve; Z98.84 Bariatric surgery status; Z88.8 Allergy status to other drugs, medicaments and biological substances; Z79.899 Other long term (current) drug therapy; Z87.19 Personal history of other diseases of the digestive system; Z79.82 Long term (current) use of aspirin; Z98.890 Other specified postprocedural states
CPT/HCPCS: 95000

== ENCOUNTER → 2019-04-26 | Outpatient (CLI) | payer BC, OTHER ==
[2019-04-26 17:19] VITALS: BP 95/50
--- NOTE | 2019-04-26 17:21 | NUR ---
IN FOR ALBUMIN REPLACEMENT POST PARACENTESIS. 9 LITERS REMOVED. ALBUMIN 25 GM IV GIVEN. PATIENT TOLERATED WELL. TO RETURN NEXT MONDAY FOR PARACENTESIS. DISMISSED IN STABLE CONDITION.
== END ==
LOC: OPONC 12:25
DX: R18.8 Other ascites (principal)
CPT/HCPCS: 95000

== ENCOUNTER → 2019-05-03 | Outpatient (CLI) | payer BC, OTHER ==
[2019-05-03 11:55] VITALS: BP 84/47
[2019-05-03 12:40] VITALS: BP 84/47
[2019-05-03 12:45] LABS: HEMATOCRIT 37.7 % (37.0-47.0); HEMOGLOBIN 12.8 gm/dL (12.0-15.0); MCH 31.1 pg (26.0-34.0); MCHC 33.9 g/dL (28.0-37.0); MCV 91.5 fL (80.0-100.0); RBC 4.12 mil/uL (4.20-5.00); RDW 15.8 % (10.5-14.5); WBC 7.1 thou/uL (4.0-11.0)
[2019-05-03 12:55] LABS: ALBUMIN 2.3 g/dL (3.4-5.0); CALCIUM 8.5 mg/dL (8.5-10.1); CREATININE 0.8 mg/dL (0.6-1.0); MAGNESIUM 1.9 mg/dL (1.8-2.4); POTASSIUM 4.3 mmol/L (3.5-5.1); TOTAL BILIRUBIN 1.1 mg/dL (<0.1-1.0); TOTAL PROTEIN 4.9 g/dL (6.4-8.2)
[2019-05-03 13:02] VITALS: BP 87/44
[2019-05-03 13:25] VITALS: BP 80/41
--- NOTE | 2019-05-03 13:35 | NUR ---
PT HERE FOR HER WEEKLY PARACENTESIS AND ALBUMIN REPLACEMENT TO FOLLOW. NOTIFIED DR. AGUERO LAST WEEK ABOUT LARGE VOLUME FROM PARACENTESIS WITH NEW ORDER OBTAINED TO GIVE MORE ABLUMIN PER PARAMETERS. PT HAVING INCREASING EDEMA BILAT LE. STATES SHE IS GOING TO SEE A SPECIALIST AT [facility] NEXT WEEK AND IS HOPEFUL THERE CAN BE SOME HELPFUL TREATMENT FOR THIS AND HER RECURRING ASCITES. BP LOW UPON ARRIVAL WHICH SHE STATES IS HER BASELINE. REMAINED LOW BUT STABLE DURING PROCEDURE. ALBUMIN INFUSED ORDERED AND PT DISMISSED POST IN STABLE CONDITION WITH . SCHEDULED TO RETURN AGAIN NEXT WEEK ON MONDAY.
== END ==
LOC: ULTRA 09:10
PROVIDERS: Specialist
DX: R18.8 Other ascites (principal)
CPT/HCPCS: 95000